=== PATIENT | male | born 1955 | race Caucasian/White ===

== ENCOUNTER 2018-02-07 18:21 | Emergency (ER) | payer OTHER ==
[~2018-02-07] VITALS: Ht 177.8 cm; Wt 61.4 kg
[2018-02-07 18:43] VITALS: BP 138/78
[2018-02-07] MEDS ORDERED: ibuprofen tablet 400 MG TABLET PO ONE (19:55)
== END 2018-02-07 20:44 | disposition home or self-care (01) ==
LOC: ER 18:21
DX: S52.501A Unspecified fracture of the lower end of right radius, initial encounter for closed fracture (principal); W22.8XXA Striking against or struck by other objects, initial encounter; Y93.01 Activity, walking, marching and hiking; Y92.89 Other specified places as the place of occurrence of the external cause; Y99.8 Other external cause status
CPT/HCPCS: 29125; 73110; 99284

== ENCOUNTER 2018-02-13 09:07 | Outpatient (CLI) | payer OTHER ==
[2018-02-13 09:01] VITALS: BP 127/71
== END 2018-02-13 09:50 | disposition home or self-care (01) ==
LOC: ORTHO 09:07
PROVIDERS: ATTEND Nurse Practitioner Family
DX: S52.591A Other fractures of lower end of right radius, initial encounter for closed fracture (principal); S62.184A Nondisplaced fracture of trapezoid [smaller multangular], right wrist, initial encounter for closed fracture; M79.89 Other specified soft tissue disorders; F17.200 Nicotine dependence, unspecified, uncomplicated; W01.0XXA Fall on same level from slipping, tripping and stumbling without subsequent striking against object, initial encounter; Y93.89 Activity, other specified; Y92.89 Other specified places as the place of occurrence of the external cause; Y99.8 Other external cause status
CPT/HCPCS: 73110; 99213

== ENCOUNTER 2018-02-21 08:57 | Outpatient (CLI) | payer OTHER ==
[2018-02-21 08:55] VITALS: BP 123/69
== END 2018-02-21 09:35 | disposition home or self-care (01) ==
LOC: ORTHO 08:57
PROVIDERS: ATTEND Nurse Practitioner Family
DX: S52.591G Other fractures of lower end of right radius, subsequent encounter for closed fracture with delayed healing (principal); S62.184D Nondisplaced fracture of trapezoid [smaller multangular], right wrist, subsequent encounter for fracture with routine healing; F17.210 Nicotine dependence, cigarettes, uncomplicated; M79.89 Other specified soft tissue disorders; W01.0XXD Fall on same level from slipping, tripping and stumbling without subsequent striking against object, subsequent encounter
CPT/HCPCS: 73110

== ENCOUNTER 2018-03-28 09:04 | Outpatient (CLI) | payer OTHER ==
[2018-03-28 09:08] VITALS: BP 106/66
== END 2018-03-28 09:47 | disposition home or self-care (01) ==
LOC: ORTHO 09:04
PROVIDERS: ATTEND Nurse Practitioner Family
DX: S52.591G Other fractures of lower end of right radius, subsequent encounter for closed fracture with delayed healing (principal); S62.18 Fracture of trapezoid [smaller multangular]; F17.210 Nicotine dependence, cigarettes, uncomplicated; W01.0XXD Fall on same level from slipping, tripping and stumbling without subsequent striking against object, subsequent encounter
CPT/HCPCS: 73110; 99213; A4590

== ENCOUNTER 2018-04-18 08:58 | Outpatient (CLI) | payer OTHER ==
[2018-04-18 08:51] VITALS: BP 132/72
== END 2018-04-18 09:32 | disposition home or self-care (01) ==
LOC: ORTHO 08:58
PROVIDERS: ATTEND Nurse Practitioner Family
DX: S52.591K Other fractures of lower end of right radius, subsequent encounter for closed fracture with nonunion (principal); S62.18 Fracture of trapezoid [smaller multangular]; M19.031 Primary osteoarthritis, right wrist; F17.210 Nicotine dependence, cigarettes, uncomplicated; W01.0XXD Fall on same level from slipping, tripping and stumbling without subsequent striking against object, subsequent encounter
CPT/HCPCS: 73110; 99213; A4590

== ENCOUNTER 2018-05-06 09:08 | Outpatient (CLI) | payer OTHER ==
[2018-05-06 08:59] VITALS: BP 119/67
== END 2018-05-06 09:39 | disposition home or self-care (01) ==
LOC: ORTHO 09:08
PROVIDERS: ATTEND Nurse Practitioner Family
DX: S52.591K Other fractures of lower end of right radius, subsequent encounter for closed fracture with nonunion (principal); S62.18 Fracture of trapezoid [smaller multangular]; F17.210 Nicotine dependence, cigarettes, uncomplicated; W01.0XXD Fall on same level from slipping, tripping and stumbling without subsequent striking against object, subsequent encounter
CPT/HCPCS: 73110; 99213; A4590

== ENCOUNTER 2018-06-05 09:04 | Outpatient (CLI) | payer OTHER ==
[2018-06-05 09:02] VITALS: BP 123/70
== END 2018-06-05 09:56 | disposition home or self-care (01) ==
LOC: ORTHO 09:04
PROVIDERS: ATTEND Nurse Practitioner Family
DX: S52.591K Other fractures of lower end of right radius, subsequent encounter for closed fracture with nonunion (principal); S62.18 Fracture of trapezoid [smaller multangular]; F17.210 Nicotine dependence, cigarettes, uncomplicated; W01.0XXD Fall on same level from slipping, tripping and stumbling without subsequent striking against object, subsequent encounter
CPT/HCPCS: 73110; 99213; A4590

== ENCOUNTER 2018-06-26 09:10 | Outpatient (CLI) | payer OTHER ==
[2018-06-26 09:03] VITALS: BP 113/66
== END 2018-06-26 10:03 | disposition home or self-care (01) ==
LOC: ORTHO 09:10
PROVIDERS: ATTEND Nurse Practitioner Family
DX: S52.591K Other fractures of lower end of right radius, subsequent encounter for closed fracture with nonunion (principal); S62.18 Fracture of trapezoid [smaller multangular]; F17.210 Nicotine dependence, cigarettes, uncomplicated; W01.0XXD Fall on same level from slipping, tripping and stumbling without subsequent striking against object, subsequent encounter
CPT/HCPCS: 73110; 99213

== ENCOUNTER 2018-07-11 09:03 | Outpatient (CLI) | payer OTHER ==
[2018-07-11 09:16] VITALS: BP 114/57
== END 2018-07-11 09:46 | disposition home or self-care (01) ==
LOC: ORTHO 09:03
PROVIDERS: ATTEND Nurse Practitioner Family
DX: S52.591G Other fractures of lower end of right radius, subsequent encounter for closed fracture with delayed healing (principal); F17.210 Nicotine dependence, cigarettes, uncomplicated; W01.0XXD Fall on same level from slipping, tripping and stumbling without subsequent striking against object, subsequent encounter
CPT/HCPCS: 73110; 99213